=== PATIENT | female | born 1985 | race Hispanic/Latino ===

== ENCOUNTER 2016-12-25 13:07 | Emergency (ER) | payer OTHER | END 2016-12-25 14:40 | disposition home or self-care (01) | LOC: H.EROB2 13:07 | DX: O47.1 False labor at or after 37 completed weeks of gestation (principal); Z3A.40 40 weeks gestation of pregnancy; O48.0 Post-term pregnancy ==

== ENCOUNTER 2016-12-27 19:51 | Inpatient (IN) | payer OTHER ==
[2016-12-27 19:58] VITALS: BMI 25.8
[2016-12-27 21:08] LABS: HEMATOCRIT 38.9 % (34.0-47.0); MEAN CELL VOLUME 92.5 fl (81.0-99.0); MEAN CORPUSCULAR HEMOGLOBIN 31.4 pg (27.0-31.0); MEAN CORPUSCULAR HGB CONC 33.9 g/dL (33.0-37.0); RED CELL DISTRIBUTION WIDTH 13.7 % (11.5-14.5); WHITE BLOOD COUNT 8.3 K/uL (4.8-10.8)
[2016-12-27 22:06] VITALS: BP 105/75; PULSE 117; RESP 18; TEMP 98.2
--- NOTE | 2016-12-28 07:51 | OBHP ---
Datetime: 12/27/2016 20:52 IP Adm Impression: Term, intrauterine ; No Active Labor IP Adm Impression Other: Oligohydramnios IP Admit Plan: Admit to unit; Initiate labor induction protocol Admit Comment, IP Provider: 31 yo , at 40.5 weeks GA by Us with [place]: 12/22/16 presents to [facility] c /o uterine Ctx started yesterday morning 11 Am, more frequent last night and today during the day, ir regular , every 5-9 min, 3/10 in intensity. Patient denies LOF, VB, dysuria, fever, headache, N/V/D. Patient reports + FM. Patient had US today that showed JUDY: [address] Webber. POBhx: None PMHx: none. Allergies: NKDA Meds: PNV PSurghx: none PShx: Denies ETOH,rect drugds, cig Blood Type: A+ GBS: neg hiv: neg RPR: neg Antibody: neg HbsAg: neg flu: placed tdap: placed Assessement/plan: 31 yo , at 40.5 weeks GA. olygohydramnios. -Admit L _d - continous monitoring case discused with Dr Webber. OB Hospitalist note: This pt was seen and examined by me. Agree with above note. Discussion about medical condition, IOL, labor, medicatoins, pain managment, delivery and postpart um care. MAHNDO Pelvic Type - PN: Adequate Extremities - PN: Normal Abdomen - PN: Normal Back - PN: Normal Breast - PN: Not Done Lungs - PN: Normal Heart - PN: Normal Thyroid - PN: Normal Neurologic - PN: Normal HEENT - PN: Normal General - PN: Normal FHR - Baseline A Provider: 120 Membranes, Provider: Intact Contraction Comments Provider: q7-9 min irregular Comments, ACOG Physical Exam: Us Bedside: vertexROS: General: no weakness; no fatigue HEENT: no REYES; no visual dist CV: no palpitations; no no CP GI: noN/V no diarhea No epigastric pain; non radiating : no F/U/D MS: No joint pain Pool Provider: Negative IP Hx Assessment: The History has been Reviewed and is Current EGA AdmitDate IP: 40.5 Vital Signs Provider: Reviewed; Within Normal Limits IP Chief Complaint: Uterine contractions NICHD Variability Prov Fetus A: Moderate 6-25bpm NICHD Accel Fetus A IP Provider: [id number] FHR Category Provider Fetus A: Category I NICHD Decel Fetus A IP Provider: None Dilatation, Provider: fingertip Effacement, Provider: long Station, Provider: high Genitourinary Exam: Normal DTRs - PN: Normal Datetime: 12/25/2016 14:42 Weight - Estimated: 6 Presentation-Admit: Vertex Gestation - Est Wks by US: 40.0 Nitrazine Provider: Negative Ferning Provider: Negative
[2016-12-28] MEDS ORDERED: Oxytocin 30 units/LR 500ML 30 U/500 ML BAG IV ONE ×3 (09:55→17:30)
[2016-12-28] MEDS ORDERED: Fentanyl/Bupivacaine HCl 250 ML EPI ONE ×2 (10:06→10:28)
[2016-12-28] MEDS ORDERED: ePHEDrine 50 mg/ml Inj ONE (10:15)
[2016-12-28] MEDS ORDERED: Lactated Ringer's 1,000 ML IV SCH (11:00)
[2016-12-28] MEDS ORDERED: Oxycodone/Acetaminophen 5/325 mg Tab PO PRN ×4 (17:04→19:32)
[2016-12-28] MEDS ORDERED: Lactated Ringer's 500 ML IV ONE (17:14)
--- NOTE | 2016-12-28 17:23 | OBDS ---
MATERNAL INFORMATION Provider Comments: Delivered a live baby boy 5:03 PM the baby was bulb suctioned on the perineum and transferred to maternal chest there was a nuchal cord that was reduced post delivery. Cord blood was obtained and sent to the lab, placenta was delivered at 5:07 PM intact. Estimated blood loss is 250 mL. A first-degree vaginal laceration was repaired with 2-0 repeat. The mother tolerated the procedur e well and the baby went to the nursery with Apgars of 9 and 9 LABOR SUMMARY EDC: 12/22/2016 00:00 LABOR INFORMATION Cervical Ripening Agents: Cervidil (Annotations: Inserted by Dr. Webber ) Group B Beta Strep: Negative MEMBRANES Membranes Rupture Method: Artificial Rupture of Membranes: 12/28/2016 12:20 Amniotic Fluid Color: Clear Amniotic Fluid Amount: Small Amniotic Fluid Odor: Normal VAGINAL DELIVERY Episiotomy: None Laceration Extension: First Degree Laceration Type: Vaginal Sponge Count Correct: Yes Sharps Count Correct: Yes
[2016-12-29] MEDS ORDERED: Lansinoh for Breast Feeding Mothers TP ONE (03:30)
[2016-12-29 07:14] LABS: BASO % 0.2 % (0.0-2.0); EOS % 0.2 % (0.0-4.0); HEMATOCRIT 36.5 % (34.0-47.0); LYMPH # 1.7 K/uL (1.0-4.3); LYMPH % 14.2 % (20.0-40.0); MEAN CELL VOLUME 92.9 fl (81.0-99.0); MEAN CORPUSCULAR HEMOGLOBIN 31.4 pg (27.0-31.0); MEAN CORPUSCULAR HGB CONC 33.8 g/dL (33.0-37.0); MEAN PLATELET VOLUME 11.6 fl (7.2-11.7); MONO % 8.3 % (0.0-10.0); NEUT % 77.1 % (50.0-75.0); RED CELL DISTRIBUTION WIDTH 14.1 % (11.5-14.5); WHITE BLOOD COUNT 11.7 K/uL (4.8-10.8)
[2016-12-29] MEDS: Lansinoh for Breast Feeding Mothers TP PRN (07:17)
--- NOTE | 2016-12-29 08:53 | OBPPN ---
Datetime: 12/29/2016 08:50 PP Pain Prov: Within normal limits PP Abdomen/Uterus Prov: Normal PP Lochia Prov: Normal PP Extremities Prov: Normal PP Progress Prov: Normal PP Impression Prov: Normal progression PP Plan Prov: Continue present management PP Progress Note Prov: PPD 1 s/p , doing well, trying to breast feed Continue current management Vital Signs Provider PP: Reviewed
[2016-12-29] MEDS ORDERED: Lansinoh for Breast Feeding Mothers TP SCH (09:00)
[2016-12-30] MEDS ORDERED: Benzocaine/Menthol SPRAY TOP PRN (11:36)
--- NOTE | 2016-12-30 11:47 | OBPPN ---
Datetime: 12/30/2016 11:44 PP Pain Prov: Within normal limits PP Nausea Prov: Denies PP Flatus Prov: Yes PP Breasts Prov: Normal PP Heart Prov: Normal PP Lungs Prov: Normal PP Abdomen/Uterus Prov: Normal PP Lochia Prov: Normal PP Vulva/Perineum Prov: Normal PP CVA Tenderness Prov: Normal PP Extremities Prov: Normal PP Comments Phys Exam Prov: Fundus firm under umbilicus PP Impression Prov: Normal progression PP Plan Prov: Continue present management PP Progress Note Prov: Patient denies CP, no SOB, no N/V, tolerating PO diet, ambulating/voiding wel l, tolerating PO diet, abdominal pain tolerable with meds, mild lochia A/P PPD #2 1. Discharge patient home 2. Discharge instructions reviewed with patient IP PP Procedures: None Vital Signs Provider PP: Reviewed; Within Normal Limits
--- NOTE | 2016-12-30 11:47 | OBDCSUM ---
Datetime: 12/25/2016 14:29 Discharged to, Provider: home Follow up at, Provider: [facility] Discharge Instructions, Provider: Routine instructions given Discharge Diagnosis, Provider: Term Delivered Discharge Time: 12/30/2016 14:40 Follow up in weeks, Provider: 6 weeks. Contraception discussed, Prov: Yes Disch Activity Restrictions: No lifting; No sexual activity; Nothing in vagina - [place], tampon s, douche Discharge Comment, Provider: return to hospital if increased bleeding, pain, temp
[2016-12-30] MEDS: Lansinoh for Breast Feeding Mothers TP PRN (13:16)
== END 2016-12-30 14:15 | disposition home or self-care (01) | DRG 775 ==
LOC: H.EROB2 19:51 → H.L&D 20:23 → H.OB/GYN 12-28 19:50
PROVIDERS: ADMIT Obstetrics & Gynecology; ATTEND Obstetrics & Gynecology
PROC: 4A0HXCZ Measurement of Products of Conception, Cardiac Rate, External Approach (ICD-10-PCS; 2016-12-27)
PROC: 0HQ9XZZ Repair Perineum Skin, External Approach (ICD-10-PCS; principal; 2016-12-28)
PROC: 10E0XZZ Delivery of Products of Conception, External Approach (ICD-10-PCS; 2016-12-28)
DX: O41.03X0 Oligohydramnios, third trimester, not applicable or unspecified (principal); O71.4 Obstetric high vaginal laceration alone; Z37.0 Single live birth; O48.0 Post-term pregnancy; Z3A.40 40 weeks gestation of pregnancy; O69.81X0 Labor and delivery complicated by cord around neck, without compression, not applicable or unspecified